=== PATIENT | female | born 1945 | race Caucasian/White ===

== ENCOUNTER 2017-07-22 01:25 | Inpatient (IN) | payer OTHER, MEDICARE ==
[~2017-07-22] VITALS: Ht 154.9 cm; Wt 90.7 kg
[~2017-07-22 01:25] MED LIST: CARTIA XT180 M1 PO; GLUCOSAMINE &1 EACH PO; LATANOPROST2.5 ML OPH; SERTRALINE HCL100 MG PO; ST. JOSEPH ASPI81 MG PO; VALSARTAN-HCTZ1 EAC2 PO
[2017-07-22] MEDS ORDERED: VITAMIN D31000 UNI2 PO (10:26)
[2017-07-22] MEDS ORDERED: MIRALAX17 G1 PO (12:54)
[2017-07-22] MEDS ORDERED: COLACE100 M1 PO (12:54)
[2017-07-22] MEDS ORDERED: DILAUDID2 M1 PO (12:54)
[2017-07-22] MEDS ORDERED: ASPIRIN EC325 M2 PO (12:54)
--- NOTE | 2017-07-22 13:06 | Patient Discharge Instructions ---
Discharge Instructions General Discharge Information You were seen/treated for: osteoarthritis right knee You had these procedures: right total knee replacement Watch for these problems: Increasing pain despite the use of pain medication Increasing redness, warmth or swelling Drainage of any type from incision Inability to bear weight on operative leg Persistent nausea and vomiting Fever greater than 101.5 degrees Call Surgeon to remove: Grethel (wound check in 2 weeks) Do not soak the wound: No Daily wet to dry dressings: No No bath, but you may shower: No Other wound care: Please keep wound clean and dry. No ointments or lotions of any type on or near incision. Your dressing will be changed by your nurse on the second day after your surgery. Daily dry dressing changes are recommended each day thereafter. Do not soak your wound- no tub baths/swimming. You may shower 48hr after surgery. Special Instructions: Aspirin: You are taking this medication to help prevent blood clot formation. Please take with food to protect your stomach lining. Please take as directed. Constipation: Pain medication can cause constipation. It is recommended that you take Colace and Miralax each day. Discontinue this medication if you develop loose stool or diarrhea. If you wish to continue this medication, it is available over the counter. If you are unable to move your bowels or unable to pass gas and are developing bloating, nausea, or vomiting as a result, please contact your doctor. Diet Continue normal diet: Yes Recommended Diet: Regular Activity Full Activity/No Limits: No (no strenuous activities) Activity Self Limited: Yes Acute Coronary Syndrome Inclusion Criteria At DC or during hospital stay patient has or had the following: ACS DIAGNOSIS No Discharge Core Measures Meds if any: Prescribed or Continued at Discharge Meds if any: NOT Prescribed or Continued at Discharge Congestive Heart Failure Inclusion Criteria At DC or during hospital stay patient has or had the following: CHF DIAGNOSIS No Discharge Core Measures Meds if any: Prescribed or Continued at Discharge Meds if any: NOT Prescribed or Continued at Discharge Cerebrovascular accident Inclusion Criteria At DC or during hospital stay patient has or had the following: CVA/TIA Diagnosis No Discharge Core Measures Meds if any: Prescribed or Continued at Discharge Meds if any: NOT Prescribed or Continued at Discharge Venous thromboembolism Inclusion Criteria VTE Diagnosis No VTE Type NONE VTE Confirmed by (Test) NONE Discharge Core Measures - Per Current guidelines, there needs to be overlap - treatment for the first 5 days of Warfarin therapy. - If discharged on Warfarin prior to 5 days of - overlap therapy, the patient will need to be - assessed for post discharge needs including - *Post discharge parental anticoagulation - *Warfarin and/or parental anticoagulation education - *Follow up date to check INR post discharge At least 5 days overlap therapy as Inpatient No Meds if any: Prescribed or Continued at Discharge Note: Overlap Therapy is Warfarin and Anticoagulant Meds if any: NOT Prescribed or Continued at Discharge
--- NOTE | 2017-07-22 13:07 | Admission Core Measures ---
Acute Coronary Syndrome (CM) ACS Core Measures Acute Coronary Syndrome Diagnosis No Congestive Heart Failure (NEW) CHF Core Measures Congestive Heart Failure Diagnosis No Cerebrovascular Accident CVA Core Measures CVA/TIA Diagnosis No Venous Thromboembolism VTE Core Katherine (View Protocol) VTE Risk Factors Surgery No Mechanical VTE Prophylaxis d/t N/A MechProphylax Ordered No VTE Pharm Prophylaxis d/t NA PharmProphylax ordered Problem List As ranked by this Provider includes Assessment & Plan 1. Osteoarthritis of right knee HOME MEDS Home Med List Aspirin (Ecotrin*) 325 MG TABLET.DR 1 TAB PO BID DVT PROPHALAXIS Cholecalciferol (Vitamin D3) 1,000 UNIT TABLET 5 TAB PO DAILY supp (Reported) Diltiazem HCl (Cartia Xt) 180 MG CAP.ER.24H 1 TAB PO BID BP (Reported) Docusate Sodium (Colace) 100 MG CAPSULE 1 CAP PO BID PREVENT CONSTIPATION Glucosa Sheriff 2KCL/Chondroitin Sheriff (Glucosamine & Chondroitin Cap) 500 MG-400 MG CAPSULE 1 TAB PO DAILY SUPPLEMENT (Reported) Hydromorphone HCl (Dilaudid) 2 MG TABLET 1-2 TAB PO Q4-6 PRN PRN PAIN Latanoprost 0.005 % DROPS 1 GTT OPH QPM GLAUCOMA (Reported) Polyethylene Glycol 3350 (Miralax) 17 GRAM POWD.PACK 1 PAC PO DAILY PREVENTION CONSTIPATION Sertraline HCl 100 MG TABLET 1 TAB PO DAILY DEPRESSION (Reported) Valsartan/Hydrochlorothiazide (Valsartan-Hctz 160-25 MG Tab) 160 MG-25 MG TABLET 1 TAB PO DAILY BP (Reported)
--- NOTE | 2017-07-22 13:14 | Surgical Discharge Summary ---
Visit Information Visit Dates Admission Date: 07/22/17 Discharge Date: 07/24/17 History of Present Illness Chief Complaint: right knee pain Medical History EENT: NONE (glucoma) Cardiovascular: hypertension Psychiatric: depression Surgical History Pertinent Surgical History: non-contributory Review of Systems: NONE Hospital Course Course Attending Physician: Claudio Reynolds MD Primary Care Physician: Patient Has No Primary Care Dr Hospital Course: Primary osteoarthritis right total kneearthroplasty WBAT, use assistive devices as needed Patient was admitted to the hospital for an elective total joint replacement. Procedure was tolerated well and patient was transferred to a general surgical floor. Diet was advanced and tolerated. Physical therapy performed evaluation and treatment. At time of hospital discharge, vital signs were stable, neurovascular status was intact, and pain was controlled with the use of oral pain medications. Follow up with Dr. Reynolds in 6 weeks from date of surgery. Please call his office to schedule/confirm this appointment. Complications: none Allergies: Coded Allergies: No Known Allergies (07/17/17) Significant Procedures: right total knee replacement Pertinent Lab Results: none Disposition Summary Disposition Principal Diagnosis: osteoarthritis right knee Additional Diagnosis: none Discharge Disposition: home health services Discharge Instructions General Discharge Information Code Status: Full Code Patient's Diet: regular Patient's Activity: ad juan, self limiting Follow-Up Instructions/Appts: see d/c instruction sheet Medications at Discharge Discharge Medications: Continue taking these medications: Valsartan/Hydrochlorothiazide (Valsartan-Hctz 160-25 MG Tab) 160 MG-25 MG TABLET 1 Tablet ORAL DAILY Latanoprost (Latanoprost) 0.005 % DROPS 1 Drop In the eye Every night Instructions: BOTH EYES Diltiazem HCl (Cartia Xt) 180 MG CAP.ER.24H 1 Tablet ORAL TWICE DAILY Sertraline HCl (Sertraline HCl) 100 MG TABLET 1 Tablet ORAL DAILY Glucosa Sheriff 2KCL/Chondroitin Sheriff (Glucosamine & Chondroitin Cap) 500 MG-400 MG CAPSULE 1 Tablet ORAL DAILY Cholecalciferol (Vitamin D3) 1,000 UNIT TABLET 5 Tablet ORAL DAILY Start taking the following new medications: Aspirin (Ecotrin*) 325 MG TABLET.DR 1 Tablet ORAL TWICE DAILY Qty = 60 No Refills Docusate Sodium (Colace) 100 MG CAPSULE 1 Capsule ORAL TWICE DAILY Qty = 14 No Refills Hydromorphone HCl (Dilaudid) 2 MG TABLET 1-2 Tablet ORAL EVERY 4-6 HOURS NEEDED as needed for PAIN Qty = 36 No Refills Polyethylene Glycol 3350 (Miralax) 17 GRAM POWD.PACK 1 Packet ORAL DAILY Qty = 7 No Refills Instructions: dissolve in water Copies To: Gail SALAS,Claudio
--- NOTE | 2017-07-22 14:14 | Operative Report ---
Operative/Inv Procedure Report Surgery Date: 07/22/17 Name of Procedure: 1. Right total knee replacement 2. Left knee cortisone injection Pre-Operative Diagnosis: Bilateral primary knee DJD Post-Operative Diagnosis: Same Estimated Blood Loss: 50ml to 100ml Surgeon/Seniour Insight Manager: Gail SALAS,Claudio Jackson Anesthesia: block Operative/Procedure Note Note: Description of Procedure: The patient was taken to the operating room and positively identified. After induction of spinal anesthesia and administration of appropriate pre-operative antibiotics, the patient was positioned supine on the operating room table and all bony prominences were well padded. The left knee was prepped sterilely and injected with a mixture of 2 mL of Depo- Medrol and 6 mL of half percent Marcaine. A Band-Aid was placed over the injection site. Attention was then turned to the contralateral limb. A well-padded pneumatic tourniquet was placed on the right upper thigh. After performing a surgical timeout, the right lower extremity was prepped and draped in the usual sterile fashion. After exsanguination with Esmarch the tourniquet was inflated to 250mm of mercury. A standard medial parapatellar approach was made to the knee. This was carried down through skin and subcutaneous tissue to the level of the fascia. Meticulous hemostasis was maintained with Bovie electrocautery. The extensor mechanism and patellar retinaculum were opened sharply and the patella was everted. The infrapatellar fat was resected in order to improve exposure. Osteophytes were trimmed from the patella and femoral condyles and the patella was re-everted and tucked laterally. A medial release was performed and the cruciate ligaments were resected. The tibia was then subluxed anteriorly. Utilizing the appropriate extra-medullary guide, the proximal tibia was trimmed perpendicular to the long axis of the tibial shaft. Attention was then turned to the femur. After opening the medullary canal, the distal femoral cut was made in 6 degrees of valgus utilizing the appropriate intra-medullary guide. The extension gap was checked and found to be appropriate. The femur was then sized and the remainder of the femoral cuts were made with a size 3 4-in-1 femoral cutting guide. The flexion gap was checked and found to be symmetric and appropriate. The knee was then trialed with a size 3 femoral component, a size 3 tibial component and a size 9 mm polyethylene insert. The patella was trimmed to accept an A 32 patella. This yielded excellent range of motion, stability and patellar tracking. All trial components were removed and the knee was copiously irrigated with sterile saline. All components were cemented into place with Reuben Simplex cement. All the components were of the vpod.tv Triathlon knee system of the above stated sizes. The knee was again irrigated after cementation. The extensor mechanism and patellar retinaculum were repaired using interrupted #1 vicryl suture. The skin was re-approximated with 2-0 vicryl and closed with feli. A sterile dressing was applied, the tourniquet was deflated, the patient was awakened and taken to the recovery room in satisfactory condition.
[2017-07-22 15:25] VITALS: BP 126/82
--- NOTE | 2017-07-22 15:30 | PN- Orthopedic ---
Subjective Subjective: POC: Patient feels well, she has no pain. There are no complaints. She is in good spirits. Objective Vital Signs and I&Os Vital signs stable, afebrile Physical Exam: Well-developed well-nourished no apparent distress. HEENT: Atraumatic, extraocular motion intact Neck: Supple, no lymphadenopathy Respiratory: No respiratory distress Extremities: No edema RIGHT lower extremity dressing in place, dressing clean dry and intact Range of motion is 0-60. Compression wrap in place. ALPS in place Neurovascularly intact distally Bilateral calves are supple, nontender. Neuro: Alert and oriented x3 Psych: Mood affect normal, normal memory normal judgment. Skin: Warm and dry, no rash on exposed skin Assessment/Plan Assessment/Plan Postop day #0 status post right total knee arthroplasty Perioperative antibiotics. Pain medication as needed. Out of bed Physical therapy, weightbearing as tolerated IV fluids Regular diet Follow a.m. labs Aspirin for DVT prophylaxis ALPS for DVT prophylaxis Regular home meds Dressing change postop day 2 Plan for discharge home in 2-3 days with VNA services Core Measures Venous Thromboembolism VTE Risk Factors Surgery No Mechanical VTE Prophylaxis d/t N/A MechProphylax Ordered No VTE Pharm Prophylaxis d/t NA PharmProphylax ordered
[2017-07-22 18:30] VITALS: BP 138/62
[2017-07-22 20:24] VITALS: BP 137/80
[2017-07-23 02:38] VITALS: BP 125/75
[2017-07-23 06:20] VITALS: BP 120/50
[2017-07-23 07:41] LABS: ABSOLUTE BASOPHIL COUNT 0 /CUMM (0.0-0.2); ABSOLUTE EOSINOPHIL COUNT 0 /CUMM (0.0-0.7); ABSOLUTE LYMPH COUNT 0.5 /CUMM (1.2-3.4); ABSOLUTE MONOCYTE COUNT 0.7 /CUMM (0.10-0.60); BASOPHIL % 0 % (0.0-2.0); EOSINOPHIL % 0 % (0-5); HEMATOCRIT 39.5 % (37-47); MEAN CORPUSCULAR HGB 31.6 PG (27.0-31.0); MEAN CORPUSCULAR HGB CONC 34.3 G/DL (33.0-37.0); MEAN CORPUSCULAR VOLUME 92.3 FL (81.0-99.0); MEAN PLATELET VOLUME 7.2 FL (7.4-10.4); PLATELET COUNT 261 /CUMM (130-400); RBC DISTRIBUTION WIDTH 13.9 % (11.5-14.5); RED BLOOD CELL CT 4.27 /CUMM (4.20-5.40); WHITE BLOOD CELL COUNT 10.2 /CUMM (4.8-10.8)
--- NOTE | 2017-07-23 08:03 | PN- Orthopedic ---
Subjective Subjective: POD#1 S/P RIGHT TKA PAIN ISSUES LAST EVENING, FEELING MUCH BETTER THIS AM DENIES CP, SOB, NO N+V WITH DIET Objective Vital Signs and I&Os Vital Signs Date Time Temp Pulse Resp B/P B/P Pulse O2 O2 Flow FiO2 Mean Ox Delivery Rate / 0620 97.8 56 20 120/50 91 Room Air 07/23 0238 97.7 60 20 125/75 94 Room Air 07/22 2024 97.8 58 18 137/80 96 Room Air 07/22 1830 96.9 53 20 138/62 95 Room Air 07/22 1525 97.5 55 18 126/82 92 Room Air Intake & Output 07/23 1600 07/23 0800 07/23 0000 07/22 1600 07/22 0800 07/22 0000 Intake Total 840 200 Output Total 600 Balance 240 200 Intake, IV 600 Intake, Oral 240 200 Output, Urine 600 Patient 200 lb Weight Weight Reported by Patient Measurement Method Physical Exam: CV: RRR LUNGS: CLEAR ABD: SOFT, +BS EXT: KNEE DRSG DRY DISTAL CMS INTACT Assessment/Plan Assessment/Plan ORTHO STABLE PLAN OOB WITH PT TODAY TITRATE PAIN MEDS ASA/ALPS FOR DVT PROPHYLAXIS ENCOURAGE IS HOME D/C PLANNING Core Measures Venous Thromboembolism VTE Risk Factors Surgery No Mechanical VTE Prophylaxis d/t N/A MechProphylax Ordered No VTE Pharm Prophylaxis d/t NA PharmProphylax ordered
[2017-07-23 08:08] LABS: GRANULOCYTE % 88.8 % (42.2-75.2)
[2017-07-23 14:12] VITALS: BP 110/74
[2017-07-23 21:49] VITALS: BP 142/80
[2017-07-24 02:10] VITALS: BP 122/68
[2017-07-24 05:43] VITALS: BP 112/80
--- NOTE | 2017-07-24 07:27 | PN- Orthopedic ---
Subjective Subjective: POD#2 S/P RIGHT TKA COMFORTABLE NO MAJOR ISSUES OVERNIGHT DENIES CP, SOB, NO N+V HAS AMBULATED AND CLEARED PT FOR HOME D/C PAIN CONTROLLED WITH PO PAIN MEDS Objective Vital Signs and I&Os Vital Signs Date Time Temp Pulse Resp B/P B/P Pulse O2 O2 Flow FiO2 Mean Ox Delivery Rate 07/24 0543 98.6 54 18 112/80 94 Room Air 07/24 0210 98.7 60 20 122/68 91 Room Air 07/23 2149 98.4 52 16 142/80 91 Room Air 07/23 1412 98.1 55 18 110/74 94 Room Air 07/23 1031 54 136/92 Intake & Output 07/24 0800 07/24 0000 07/23 1600 07/23 0800 07/23 0000 07/22 1600 Intake Total 542 617 8661 840 200 Output Total 400 1000 900 600 Balance -280 -760 300 240 200 Intake, IV 600 600 Intake, Oral 120 240 600 240 200 Output, Urine 400 1000 900 600 Patient 200 lb Weight Weight Reported by Patient Measurement Method Physical Exam: CV: RRR LUNGS: CLEAR ABD: SOFT, +BS EXT: DRSG CHANGED, WOUND C/D/I CALVES SOFT BILAT DISTAL CMS INTACT Assessment/Plan Assessment/Plan ORTHO STABLE PLAN HOME D/C TODAY CONT CURRENT PLAN Core Measures Venous Thromboembolism VTE Risk Factors Surgery No Mechanical VTE Prophylaxis d/t N/A MechProphylax Ordered No VTE Pharm Prophylaxis d/t NA PharmProphylax ordered
[2017-07-24 08:06] VITALS: BP 112/50
== END 2017-07-24 13:03 | disposition home health service (06) | DRG 470 ==
LOC: SDA 01:25 → ENRESERV 14:28 → ENTRNSPT 14:45 → EDTRNSPT 15:07 → EDTRNSPTSTS 15:07 → 2NB 15:14 → CMPTRNSPT 15:27 → ENPENDDIS 07-24 07:22 → ENTRNSPT 07-24 12:53 → EDTRNSPTSTS 07-24 13:03 → 2NB 07-24 13:03 → EDTRNSPT 07-24 13:03 → CMPTRNSPT 07-24 13:12
PROVIDERS: Physician Assistant
PROC: 3E0T3BZ Introduction of Anesthetic Agent into Peripheral Nerves and Plexi, Percutaneous Approach (ICD-10-PCS; principal; 2017-07-22)
PROC: 0SRC0J9 Replacement of Right Knee Joint with Synthetic Substitute, Cemented, Open Approach (ICD-10-PCS; principal; 2017-07-22)
DX: M17.11 Unilateral primary osteoarthritis, right knee (principal); I10 Essential (primary) hypertension
CPT/HCPCS: 2NBP; 36592; 82436; 97110-GO; 97116-GO; C1713; J0131; J0690; J1030; J2405; J3490; J7042